=== PATIENT | female | born 1970 | race Caucasian/White ===

== ENCOUNTER 2021-04-04 08:40 | Emergency (ER) | payer OTHER ==
[~2021-04-04 08:40] MED LIST: AJOVY225 MG/1.5 IM; ATORVASTATIN CA20 MG PO; BACTRIM DS TAB1 EACH PO; COMBIVENT RESPIM4 GM INH; DIFLUCAN150 MG PO; ESTRACE1 MG PO; KEFLEX500 MG PO; LASIX20 MG PO; LEVOTHYROXINE112 MCG PO; MOBIC15 MG PO; PREDNISONE 20MG20 MG PO; PROTONIX 40MG T40 MG PO; SUMATRIPTA6 MG/0.5 M SUBD; SUMATRIPTAN SU100 MG PO; SYNTHROID75 MCG PO; TOPIRAMATE50 MG PO; VENLAFAXINE HC150 M1 PO; VISTARIL50 MG PO; VITAMIN D250000 UNIT PO; XANAX0.25 MG PO; ZOLOFT100 MG PO
[2021-04-04 10:24] LABS: EOSINOPHIL 4.1 % (0-5); HCT 40.8 % (37.0-47.0); HGB 12.5 g/dl (12.5-16.0); LYMPHOCYTE 26.3 % (15-48); MCH 29.7 pg (25.0-31.0); MCHC 30.6 g/dL (32.0-36.0); MCV 96.9 fL (78.0-100.0); MPV 11.6 fL (6.0-9.5); NEUTROPHIL 59.3 % (41-80); NRBC 0; PLT 147 K/uL (150-400); RBC 4.21 M/uL (4.20-5.40); RDW 14.4 % (11.5-14.0); WBC 3.9 K/uL (4.0-10.5)
[2021-04-04 10:34] LABS: BUN/CREAT RATIO (CALC) 16.7 RATIO; CREATININE 0.78 mg/dL (0.51-0.95)
== END 2021-04-04 11:29 | disposition home or self-care (01) ==
LOC: FER 08:40
PROVIDERS: Emergency Medicine
DX: U07.1 COVID-19 (principal); Z87.09 Personal history of other diseases of the respiratory system; Z88.8 Allergy status to other drugs, medicaments and biological substances
CPT/HCPCS: 36415; 71045; 80048; 85025; M0243; Q0244